=== PATIENT | male | born 2005 | race Caucasian/White ===

== ENCOUNTER 2025-03-27 21:55 | Emergency (ER) | payer OTHER, SELFPAY ==
[2025-03-27 21:55] VITALS: BP 115/72; PULSE 108; RESP 18; TEMP 36.6; O2SAT 99; BMI 26.2
[2025-03-27] MEDS: 0.9% Normal Saline (1000mL) 1,000 ML 1000 ML IV (23:18)
--- NOTE | 2025-03-27 23:46 | EX.ED.DYSGE1 ---
HPI History of Present Illness Chief Complaint: Substance Abuse Informant: patient Onset/Context/Timing Onset: Today Context: Sudden Onset Timing: Continuous Quality: Panicked, frantic Location: Generalized Worsened by: Nothing Relieved by: Talking with his friends Narrative Narrative: Patient presents feeling panicked and frantic tonight. Patient states he did not edible gummy and started having sensation of feeling panicked shortly after that. Patient denies any fevers or chills. Patient states she is starting to feel better. Patient states that he has been talking with his friends which have been helping. Patient states nothing makes it worse. Patient denies any suicidal or homicidal ideations. Patient states he did have some nausea and vomiting. Patient admits to some blurry vision. [facility] Medical History ADHD Home Medications ?Medication ?Instructions ?Recorded ?Last Taken ?Type NK 03/27/25 Unknown History Allergy/AdvReac Type Severity Reaction Status Date / Time No Known Allergies Allergy Verified 03/27/25 21:56 Surgical History no surgical history no surgical history Social History Smoking Status: Never smoker ROS ROS ED Constitutional Constitutional ED: Denies chills or fever(s) Eyes Eyes: Reports blurry vision; Denies diplopia ENT ENT ED: Reports rhinorrhea; Denies sore throat Cardiovascular Cardiovascular: Reports palpitations; Denies chest pain Respiratory/Chest Respiratory/Chest: Denies cough or dyspnea Gastrointestinal Gastrointestinal: Reports nausea and vomiting Genitourinary Genitourinary ED: Denies dysuria or hematuria Musculoskeletal Musculoskeletal: Reports back pain; Denies neck pain Integumentary Denies abscess or rash Neurologic Neurologic: Denies headache(s) or weakness Allergic/Immunologic Allergic/Immunologic ED: Denies mouth swelling or urticaria EXAM Physical Exam Const Vital Signs: 03/27/25 21:55 Temperature 98 F Temperature Source Oral Pulse Rate 108 H Respiratory Rate 18 Blood Pressure 115/72 Blood Pressure Mean 86 Pulse Ox 99 Oxygen Delivery Method Room Air Positive well nourished and well developed Constitutional Narrative: BMI is 26.2. General Appearance ED: well developed and NAD HEENT Reports moist mucous membranes Eyes PERRL and EOMs intact bilaterally Neck supple and no JVD Resp normal respiratory effort and clear to auscultation bilaterally Cardio regular rate and regular rhythm GI non-tender and non-distended Palpation: soft Extremity normal to inspection General Extremety ED: Negative for edema or tenderness General Extremity: Negative for edema Neuro oriented x3, CN's II-XII intact bilaterally and no sensory deficits noted Sensorium / Orientation: alert Motor Exam: strength 5/5 throughout Psych mental status grossly normal MDM MDM MDM Narrative Medical decision making narrative: Patient was advised that this is typical reaction to edible Gummies. Patient was given IV fluids. Patient was instructed to avoid taking edible Gummies in the future. Patient was instructed to drink plenty of fluids. Patient was instructed to follow-up with his primary care physician in 5 to 7 days. Patient understood and was agreeable with the plan. All questions were answered. Discharge Plan Triage Chief Complaint: Substance Abuse ED Provider: Gary Roy Dx/Rx/DC Orders Clinical Impression: Adverse reaction to drug, Tachycardia Instructions: ED Drug Reaction, Other Prescriptions: No Action NK Primary Care Provider: Care Physician,No Primary Referrals: Care Physician,No Primary [Primary Care Provider] - Ade Villalobos, [employer] [[facility]] - 1-2 Weeks Print Language: Hungarian Disposition Disposition: Home, Self Care
[2025-03-27 23:55] VITALS: BP 122/55; PULSE 69; RESP 16; O2SAT 98
[2025-03-27 23:58] VITALS: BP 122/55; PULSE 69; RESP 16; TEMP 36.6; O2SAT 98
== END 2025-03-28 00:15 | disposition home or self-care (01) ==
PROVIDERS: Emergency Provider Emergency Medicine; Visit Provider Emergency Medicine
DX: R00.0 Tachycardia, unspecified (principal); T50.995A Adverse effect of other drugs, medicaments and biological substances, initial encounter
CPT/HCPCS: 96360; 99283; A4216